=== PATIENT | female | born 1965 | race Caucasian/White ===

== ENCOUNTER 2023-06-28 08:36 | Outpatient (OUT) | payer OTHER, SELFPAY ==
--- NOTE | 2023-06-28 08:42 | US_ITS ---
The [address] [address] Patient Name: RAYNA TORRES MRN: [id number] date: 1965 Sex: F Assigned Patient Location: Current Patient Location: Accession/Order Number: [id number] Exam Date: 06/28/2023 08:43 Report Date: 06/28/2023 12:27 At the request of: TERESA WATTS Procedure: US right upper quadrant Ultrasound abdomen right upper quadrant HISTORY: LIVER CYST right upper quadrant pain. COMPARISON: None. TECHNIQUE: Dedicated transabdominal right upper quadrant ultrasound was performed. FINDINGS: The gallbladder is nondistended and without focal wall abnormality. There is no discrete gallstone identified. No sludge is seen. The gallbladder wall measures 2 mm in thickness. No pericholecystic fluid is seen, and the sonographic Sunshine's sign is negative. The proximal common bile duct measures 2 mm in diameter. There is no intrahepatic bile duct dilatation. The liver measures 17 cm. Normal hepatopedal flow the main portal vein and antegrade flow of the hepatic veins. There is a simple-appearing cyst in the left hepatic lobe measuring 6.0 x 3.2 x 4.1 cm. The visualized pancreas is normal. Portions of the pancreas are obscured by overlying bowel gas. The right kidney measures 8.0 x 3.4 x 5.4 cm with diffuse cortical thinning. There is no hydronephrosis in the right kidney. There is no fluid in the right upper quadrant. US/US right upper quadrant IMPRESSION: 1. Normal gallbladder. There are no stones or sludge, and no sonographic evidence of acute cholecystitis. 2. 6.0 x 3.2 x 4.1 cm simple-appearing left hepatic lobe cyst. No prior comparison studies. Otherwise, normal ultrasound appearance of the liver. 3. Normal caliber common bile duct at 2 mm. 4. Mildly atrophic right kidney with cortical thinning. No hydronephrosis. Electronically authenticated by: MAURO FERNANDO Date: 06/28/2023 12:27
== END 2023-06-28 08:37 | disposition home or self-care (01) ==
LOC: US 08:37
PROVIDERS: Visit Provider Internal Medicine
DX: K76.89 Other specified diseases of liver (principal); R10.11 Right upper quadrant pain
CPT/HCPCS: 76705